=== PATIENT | female | born 1950 | race Caucasian/White ===

== ENCOUNTER 2018-06-21 13:53 | Emergency (ER) | payer OTHER ==
[~2018-06-21] VITALS: Ht 167.6 cm; Wt 102.1 kg
[2018-06-21 14:21] VITALS: BP 141/78
== END 2018-06-21 17:46 | disposition home or self-care (01) ==
LOC: ER 13:53
DX: S20.211A Contusion of right front wall of thorax, initial encounter (principal); W08.XXXA Fall from other furniture, initial encounter; Y93.89 Activity, other specified; Y92.89 Other specified places as the place of occurrence of the external cause; Y99.8 Other external cause status
CPT/HCPCS: 71101

== ENCOUNTER 2018-11-13 17:08 | Inpatient (IN) | payer OTHER ==
[~2018-11-13] VITALS: Ht 170.2 cm; Wt 102.1 kg
[2018-11-13 18:17] LABS: Basophils # (auto) 0 uL; Basophils % (auto) 0.3 % (0.0-2.0); Eosinophils # (auto) 0.1 uL; Hematocrit 42.7 % (36.0-46.0); Hemoglobin 14.5 g/dL (12.2-16.2); Lymphocytes # (auto) 1.7 uL; Lymphocytes % (auto) 20.2 % (10.0-50.0); Mean Corpuscular Hemoglobin 30.1 pg (28.0-32.0); Mean Corpuscular Hgb Conc. 33.9 g/dL (32.0-36.0); Mean Corpuscular Volume 88.8 fL (80.0-100.0); Monocytes # (auto) 0.5 uL; Monocytes % (auto) 5.7 % (0.0-12.0); Neutrophils # (auto) 6.1 uL; Neutrophils % (auto) 72.8 % (37.0-80.0); Platelet Count (auto) 273 10^3/uL (140-450); Red Blood Cells 4.81 10^6/uL (4.0-5.20); Red Cell Distribution Width 13.3 % (11.8-14.3); White Blood Cell 8.4 10^3/uL (4.4-10.8)
[2018-11-13 18:31] LABS: Albumin 3.3 g/dL (3.4-5.0); Anion Gap 10 (5-15); Blood Urea Nitrogen 21 mg/dL (7-18); Calcium 8.5 mg/dL (8.5-10.1); Carbon Dioxide 18 mmol/L (21-32); Chloride 111 mmol/L (98-107); Glucose 232 mg/dL (74-106); Magnesium 1.7 mg/dL (1.6-2.6); Potassium 3.8 mmol/L (3.5-5.1); Sodium 139 mmol/L (136-145)
[2018-11-13 18:33] LABS: Alanine Aminotransferase 24 U/L (13-56); Aspartate Aminotransferase 13 U/L (15-37); BUN/Creatinine Ratio 18.6; GFR African American 62 mL/min; GFR Non-African American 51 mL/min
[2018-11-13 18:39] LABS: Urine Bacteria NONE SEEN /hpf (None Seen); Urine Blood Negative /uL (Negative); Urine Mucus FEW (None Seen); Urine Specific Gravity 1.015 (1.001-1.035); Urine WBC 32 /hpf (0 - 5)
[2018-11-13 18:40] LABS: Alkaline Phosphatase 73 U/L (45-117); Bilirubin, Total 0.4 mg/dL (0.2-1.0); Total Protein 7.8 g/dL (6.4-8.2)
[2018-11-13] MEDS ORDERED: ASPirin 81 mg TAB PO ONE (19:45)
[2018-11-13] MEDS ORDERED: cefTRIAXone 1GM/50ML D5W 50 ML IV ONE (19:45)
[2018-11-13] MEDS ORDERED: ONDANSETRON HCL 4 MG/2 ML VIAL IV ONE (19:45)
[2018-11-13] MEDS ORDERED: MORPHINE SULF INJ 2 MG/ML SYRINGE 1ML IV PRN (22:00)
[2018-11-13] MEDS ORDERED: TEMAZEPAM 15 MG CAP PO PRN (22:00)
[2018-11-13] MEDS ORDERED: ACETAMINOPHEN 325 MG TAB PO PRN (22:00)
[2018-11-13] MEDS ORDERED: DEXTROSE (50%) 50ML SYRG IV PRN (22:00)
[2018-11-13] MEDS ORDERED: HYDROcodone-ACET 5/325MG TAB PO PRN (22:00)
[2018-11-13] MEDS ORDERED: NITROGLYCERIN 0.4 MG SL TAB SL PRN (22:00)
[2018-11-13] MEDS: ATORVASTATIN 20 MG TAB PO SCH (23:26)
[2018-11-13] MEDS: FAMOTIDINE 20 MG TAB PO SCH (23:26)
[2018-11-13] MEDS: InsuLIN REG 1unit/0.01ml Soln (100units/ml) SC SCH (23:42)
[2018-11-13] MEDS: ACCU-CHEK COMFORT CURVE STRIP VI SCH (23:42)
[2018-11-14] MEDS: ONDANSETRON HCL 4 MG/2 ML VIAL IV PRN ×2 (03:39→11:15)
[2018-11-14] MEDS: InsuLIN REG 1unit/0.01ml Soln (100units/ml) SC SCH ×3 (05:49→18:00)
[2018-11-14] MEDS: ACCU-CHEK COMFORT CURVE STRIP VI SCH ×3 (05:49→18:04)
[2018-11-14 06:12] LABS: BUN/Creatinine Ratio 20.9; Calcium 8.2 mg/dL (8.5-10.1); Potassium 3.9 mmol/L (3.5-5.1)
[2018-11-14 06:14] LABS: Basophils # (auto) 0 uL; Basophils % (auto) 0.3 % (0.0-2.0); Eosinophils # (auto) 0 uL; Eosinophils % (auto) 0.5 % (0.0-7.0); Hematocrit 39.8 % (36.0-46.0); Hemoglobin 13.3 g/dL (12.2-16.2); Lymphocytes % (auto) 22.5 % (10.0-50.0); Mean Corpuscular Hemoglobin 29.7 pg (28.0-32.0); Mean Corpuscular Hgb Conc. 33.4 g/dL (32.0-36.0); Monocytes # (auto) 0.6 uL; Monocytes % (auto) 7.3 % (0.0-12.0); Neutrophils # (auto) 6.2 uL; Neutrophils % (auto) 69.4 % (37.0-80.0); Platelet Count (auto) 248 10^3/uL (140-450); Red Blood Cells 4.47 10^6/uL (4.0-5.20); Red Cell Distribution Width 13.1 % (11.8-14.3); White Blood Cell 8.9 10^3/uL (4.4-10.8)
--- NOTE | 2018-11-14 08:10 | NUR ---
Telemetry admit from ER ALONSOSTEPHANI admitted to Telemetry unit after SBAR received. Patient oriented to Emani Franz, RN primary RN, [facility] unit, room 250 , bed b, and unit policies regarding patient care and visiting hours. Patient now on continuous telemetry monitoring, tele box #17 and telemetry reading on arrival to unit is SB. Patient weighed by bedscale and encouraged to call if they need something. All questions and concerns addressed, patient verbalized understanding. Note:
[2018-11-14] MEDS ORDERED: ACAR100T PO (09:33)
[2018-11-14] MEDS ORDERED: LOSA-49 PO (09:35)
[2018-11-14] MEDS ORDERED: METF-370 PO (09:35)
[2018-11-14] MEDS ORDERED: GLIM4TAB42 PO (09:35)
[2018-11-14] MEDS: FAMOTIDINE 20 MG TAB PO SCH ×2 (10:04→22:09)
[2018-11-14] MEDS: PANTOPRAZOLE 40 MG TAB PO SCH (10:04)
[2018-11-14] MEDS: ASPirin 81 mg TAB PO SCH (10:05)
[2018-11-14] MEDS: LOSARTAN POTASSIUM 50 MG TAB PO SCH (10:05)
[2018-11-14] MEDS: cefTRIAXone 1GM/50ML D5W 50 ML IV SCH (10:40)
[2018-11-14] MEDS ORDERED: IOHEXOL 350 MG/ML 100ML IJ ONE (10:46)
[2018-11-14] MEDS ORDERED: GASTROGRAFIN 30 ML SOL ONE (10:46)
[2018-11-14 10:51] LABS: Cholesterol 142 mg/dL (< 200); HDL Cholesterol 39 mg/dL (40-59); LDL Cholesterol 88 mg/dL (< 100); Triglycerides 138 mg/dL (< 150)
--- NOTE | 2018-11-14 11:10 | NUR ---
Dr Clark at bedside and plans for cradiolyte test 11/15/18.
--- NOTE | 2018-11-14 11:27 | NUR ---
Dr Pean at bedside. New orders received for NPO diet and IV NS at 125ml/hr. Will continue to monitor.
[2018-11-14] MEDS: SODIUM CHLORIDE 0.9% 1,000 ML IV SCH ×2 (13:19→19:45)
[2018-11-14 15:54] LABS: Amylase 22 U/L (25-115); Lipase 167 U/L (73-393)
[2018-11-14 18:34] VITALS: BP 126/58
[2018-11-14] MEDS: SUCRALFATE 1 GM/10 ML ORAL SUSP PO SCH ×2 (18:44→22:09)
--- NOTE | 2018-11-14 19:25 | NUR ---
Patient care and report handed off to Hernan NUÑEZ.
--- NOTE | 2018-11-14 20:00 | NUR ---
open note assumed care of pt. upon entering room, pt awake and alert. updated pt on plan of care. pt denied any pain, no distress noted or expressed. pt call light in reach. will round q1hr and as needed. no additional questions at this time.
[2018-11-14 22:00] VITALS: BP 134/70
[2018-11-14] MEDS: ATORVASTATIN 20 MG TAB PO SCH (22:09)
[2018-11-15] MEDS: InsuLIN REG 1unit/0.01ml Soln (100units/ml) SC SCH ×3 (00:30→11:52)
[2018-11-15] MEDS: ACCU-CHEK COMFORT CURVE STRIP VI SCH ×3 (00:30→11:46)
[2018-11-15] MEDS: SODIUM CHLORIDE 0.9% 1,000 ML IV SCH (03:45)
[2018-11-15 05:00] VITALS: BP 124/74
--- NOTE | 2018-11-15 05:15 | NUR ---
pt stated "i dont wanna continue to do tests here if it means im going to stay longer. i want to go to [facility]", this topic was brought up when this nurse made was to start new IV for cardiolite stress test scheduled to go forward this morning 11/15/18. this nurse did not start IV and will endorse to day shift RN, that pt would like to speak to the hospitalist later today to discuss options regarding her desired destination, [facility] [place] "thats where all my doctors are and thats where they can all have access to all my stuff and im comfortable there". no distress noted or expressed. call light in reach. will round q1hr and prn.
[2018-11-15 06:46] LABS: BUN/Creatinine Ratio 14.2; Calcium 7.8 mg/dL (8.5-10.1); Potassium 3.6 mmol/L (3.5-5.1)
[2018-11-15] MEDS: SUCRALFATE 1 GM/10 ML ORAL SUSP PO SCH ×2 (06:51→11:30)
[2018-11-15 06:56] LABS: Basophils # (auto) 0 uL; Basophils % (auto) 0.5 % (0.0-2.0); Eosinophils # (auto) 0.1 uL; Eosinophils % (auto) 1.7 % (0.0-7.0); Hematocrit 42.5 % (36.0-46.0); Hemoglobin 14.1 g/dL (12.2-16.2); Lymphocytes # (auto) 2.3 uL; Lymphocytes % (auto) 30.6 % (10.0-50.0); Mean Corpuscular Hemoglobin 29.7 pg (28.0-32.0); Mean Corpuscular Hgb Conc. 33.2 g/dL (32.0-36.0); Mean Corpuscular Volume 89.3 fL (80.0-100.0); Monocytes # (auto) 0.5 uL; Neutrophils # (auto) 4.6 uL; Neutrophils % (auto) 61.2 % (37.0-80.0); Platelet Count (auto) 273 10^3/uL (140-450); Red Blood Cells 4.75 10^6/uL (4.0-5.20); Red Cell Distribution Width 13.5 % (11.8-14.3); White Blood Cell 7.6 10^3/uL (4.4-10.8)
--- NOTE | 2018-11-15 07:40 | NUR ---
Went in to speak to patient regarding procedures scheduled for today, stress test and EGD. Patient refusing to have these procedures done today. Patient wants to have these procedures done as outpatient. Patient stated that she is feeling better and wants to go home today and she will follow up with her primary MD and have referrals to follow up with GI and her own food service specialist at [place]. Will inform Dr Pena and Dr Mederos.
--- NOTE | 2018-11-15 08:15 | NUR ---
Paged Dr Mederos spoke with Lina and left message to inform Dr Mederos patient refusing to have EGD done and want to have it done as outpatient. Will continue to monitor.
[2018-11-15] MEDS ORDERED: LIDOCAINE VISCOUS 2% 15ML UD ONE (08:30)
[2018-11-15] MEDS ORDERED: MIDAZOLAM HCL 5 MG/ML-1ML VIAL ONE (08:30)
[2018-11-15] MEDS ORDERED: SODIUM CHLORIDE LOCK 0 ML ONE (08:30)
[2018-11-15] MEDS ORDERED: diphenhdrAMINE HCL 50 MG/1 ML VL ONE (08:31)
[2018-11-15] MEDS ORDERED: fentaNYL CITRATE 100 MCG/2 ML VL ONE (08:31)
[2018-11-15 09:00] VITALS: BP 132/66
--- NOTE | 2018-11-15 09:15 | NUR ---
Dr Pena paged to inform MD that he wanted to be D/C and refusing tests. Will await call back.
[2018-11-15] MEDS: cefTRIAXone 1GM/50ML D5W 50 ML IV SCH (09:34)
[2018-11-15] MEDS: PANTOPRAZOLE 40 MG TAB PO SCH (09:35)
[2018-11-15] MEDS: ASPirin 81 mg TAB PO SCH (09:35)
[2018-11-15] MEDS: FAMOTIDINE 20 MG TAB PO SCH (09:35)
[2018-11-15] MEDS: LOSARTAN POTASSIUM 50 MG TAB PO SCH (09:36)
--- NOTE | 2018-11-15 09:54 | NUR ---
Dr Clark at bedside and made aware that patient refused stress test and wants to have it done as outpatient.
--- NOTE | 2018-11-15 11:55 | NUR ---
Dr Pena made aware that patient is refusing tests and would like to do EGD and stress test outpatient since, patient's is actively dying.
[2018-11-15 13:00] VITALS: BP 114/67
[2018-11-15 16:31] VITALS: BP 114/67
--- NOTE | 2018-11-15 17:11 | NUR ---
Discharge instructions given as ordered. Encourage to follow up with PMD, Cardio, and GI as instructed. Patient stated spoke with primary MD and has appt set up for Sunday already. All questions and concerns addressed. Patient verbalized understanding. Medication reconciliation form completed and copy given to patient. IV removed with catheter intact, pressure dressing applied. Telemetry unit returned to [facility]. Patient refused to be taken to vehicle via wheelchair with all personal belongings. No distress noted at time of departure.
== END 2018-11-15 17:11 | disposition home or self-care (01) | DRG 391 ==
LOC: ER 17:20 → TELE 22:04 → TELE-EAST 11-14 08:04
PROVIDERS: ADMIT Nurse Practitioner; ATTEND Internal Medicine
DX: K29.80 Duodenitis without bleeding (principal); K85.90 Acute pancreatitis without necrosis or infection, unspecified; N39.0 Urinary tract infection, site not specified; E87.2 Acidosis; E11.65 Type 2 diabetes mellitus with hyperglycemia; I11.9 Hypertensive heart disease without heart failure; R91.1 Solitary pulmonary nodule; K57.30 Diverticulosis of large intestine without perforation or abscess without bleeding; Z90.710 Acquired absence of both cervix and uterus; Z90.49 Acquired absence of other specified parts of digestive tract
CPT/HCPCS: 36415; 71045; 71260; 74176; 74177; 78582; 80048; 80053; 80061; 81001; 82150; 82962; 83036; 83690; 83735; 83880; 84484; 85025; 85379; 87086; 93005; 96365; 96366; 96375; G0378; J0696; J1815; J2250; J2405